=== PATIENT | male | born 1965 | race Caucasian/White ===

== ENCOUNTER 2022-04-18 02:57 | Observation (INO) | payer BC ==
[2022-04-18 05:28] VITALS: BMI 27.9
[2022-04-18] MEDS ORDERED: Nitroglycerin 0.4 MG TAB (25 Tab Bottle) SL PRN (05:33)
[2022-04-18] MEDS ORDERED: Ondansetron PF 4 MG/2 ML Vial IVP PRN (05:33)
[2022-04-18] MEDS ORDERED: Acetaminophen 325 MG TAB PO PRN (05:33)
[2022-04-18] MEDS ORDERED: Sodium Chloride 0.9% 1,000 ML IV SCH (06:00)
[2022-04-18 06:22] LABS: #Eosinphils 0.2 thou/uL (0.0-0.7); #Lymphocytes 3.4 thou/uL (1.20-3.40); #Monocytes 0.7 thou/uL (0.11-0.59); #Neutrophils 5.6 thou/uL (1.40-6.50); %Basophils 0.4 % (0.0-1.0); %Eosinophils 1.9 % (0.0-10.0); %Lymphocytes 34.5 % (21.0-51.0); %Monocytes 6.9 % (0.0-10.0); %Neutrophils 56.3 % (42.0-75.0); Hemoglobin 14.8 g/dL (14.0-18.0); Mean Corpuscular Hemoglobin 31.7 pg (27.0-31.0); Mean Corpuscular Volume 93.2 fl (78.0-98.0); Mean Platelet Volume 7.2 fL (7.4-10.4); Platelet Count 202 10x3/uL (130-400); RBC Distribution Width 12.9 % (11.5-14.5); Red Blood Cell (RBC) Count 4.67 mill/uL (4.70-6.10); White Blood Cell (WBC) Count 9.9 10x3/uL (4.8-10.8)
[2022-04-18 06:29] LABS: Hemoglobin A1c 4.9 % (4.0-6.0)
[2022-04-18 06:42] LABS: Anion Gap 12 mmol/L (10-20); BUN (Urea Nitrogen) 27 mg/dL (8.4-25.7); Calc. Creatinine Clearance 100 mL/min (70-130); Calcium 8.4 mg/dL (7.8-10.44); Carbon Dioxide 21 mmol/L (22-29); Cardiac Risk 5.8 (Less than 4.5); Chloride 108 mmol/L (98-107); Cholesterol 209 mg/dl (< 200 Desired); Estimated GFR 78; Glucose 96 mg/dL (70-105); HDL Cholesterol 36 mg/dL (>60 Neg Risk); LDL Cholesterol, Calculated 151 mg/dL; Sodium 137 mmol/L (136-145); Triglycerides 111 mg/dL (Less than 150)
[2022-04-18 08:04] VITALS: TEMP 97.8
[2022-04-18 08:49] LABS: Troponin I Less than 0.010 ng/mL (< 0.028)
[2022-04-18] MEDS ORDERED: Aspirin 81 mg Enteric Coated Tablet PO SCH (09:00)
[2022-04-18 12:27] VITALS: BP 118/67
[2022-04-18] MEDS ORDERED: Regadenoson 0.4 MG/5 ML SYRINGE ONE (13:31)
[2022-04-18] MEDS ORDERED: Atorvastatin Calcium 20 MG TAB PO SCH (21:00)
== END 2022-04-18 14:13 | disposition home or self-care (01) ==
LOC: 2SW 05:21
PROVIDERS: ADMIT Internal Medicine; ATTEND Internal Medicine
DX: R07.89 Other chest pain (principal); N17.9 Acute kidney failure, unspecified; E78.5 Hyperlipidemia, unspecified; I73.9 Peripheral vascular disease, unspecified; F17.210 Nicotine dependence, cigarettes, uncomplicated; Z20.822 Contact with and (suspected) exposure to COVID-19
CPT/HCPCS: 36415; 78452; 80061; 83036; 93017; A9500; G0378; J2785; J7050; U0003; U0005

== ENCOUNTER 2022-12-28 22:26 | Inpatient (IN) | payer BC ==
[~2022-12-28 22:26] MED LIST: Iopamidol 370 76% 100 ML VIAL ONE
[2022-12-28] MEDS ORDERED: fentaNYL 50 mcg/mL 1 mL Vial ONE (22:43)
[2022-12-28] MEDS ORDERED: Heparin 10,000 UNITS/ 10 ML VIAL ONE ×2 (22:44→23:25)
[2022-12-28] MEDS ORDERED: Verapamil 5 MG/2 ML VIAL ONE (22:44)
[2022-12-28] MEDS ORDERED: Lidocaine 1% (PF) 30 ML VIAL ONE (22:44)
[2022-12-28] MEDS ORDERED: Adenosine 6 MG/2 ML VIAL ONE (22:44)
[2022-12-28] MEDS ORDERED: Midazolam HCl 2 mg/2 ml Vial ONE (22:44)
[2022-12-28] MEDS ORDERED: Nitroglycerin 50 MG/250 ML BOT 250 ML ONE (22:45)
[2022-12-28] MEDS ORDERED: Atropine Sulfate 1 mg/10 ml Syringe ONE (22:46)
[2022-12-28] MEDS ORDERED: PHENYLEPHRINE-NS 100 MCG/ML 10 ML SYRINGE ONE (23:41)
[2022-12-29] MEDS ORDERED: TICAGRELOR 90 MG TABLET ONE (00:42)
[2022-12-29] MEDS ORDERED: traMADol HCl 50 MG TAB PO PRN (00:43)
[2022-12-29] MEDS ORDERED: Milk Of Magnesia 30 ML UDCUP PO PRN (00:43)
[2022-12-29] MEDS: Sodium Chloride 0.9% 1,000 ML IV SCH ×2 (01:18→01:19)
[2022-12-29 01:24] VITALS: BMI 26.6
[2022-12-29] MEDS ORDERED: Nitroglycerin 50 MG/250 ML BOT 250 ML IVPB SCH (01:30)
[2022-12-29] MEDS: Acetaminophen/Codeine 30-300mg Tablet PO PRN ×2 (02:01→13:46)
[2022-12-29] MEDS: TICAGRELOR 90 MG TABLET PO SCH ×2 (10:30→21:06)
[2022-12-29] MEDS: Aspirin Chewable 81 MG TAB PO SCH (10:31)
[2022-12-29] MEDS: Nicotine 21 MG PATCH TD SCH (10:31)
[2022-12-29] MEDS ORDERED: Ondansetron PF 4 MG/2 ML Vial IVP SCH (17:30)
[2022-12-29] MEDS ORDERED: Atorvastatin Calcium 20 MG TAB PO SCH (21:00)
[2022-12-30 06:37] LABS: #Eosinphils 0.3 thou/uL (0.0-0.7); #Monocytes 0.9 thou/uL (0.11-0.59); #Neutrophils 6.7 thou/uL (1.40-6.50); %Basophils 0.3 % (0.0-1.0); %Eosinophils 2.4 % (0.0-10.0); %Lymphocytes 24.1 % (21.0-51.0); %Monocytes 8.4 % (0.0-10.0); %Neutrophils 64.5 % (42.0-75.0); Hematocrit 43.7 % (42.0-52.0); Hemoglobin 15.1 g/dL (14.0-18.0); Mean Corpuscular HGB CONC 34.6 g/dL (32.0-36.0); Mean Corpuscular Hemoglobin 31.5 pg (27.0-31.0); Mean Platelet Volume 10.3 fL (7.4-10.4); Platelet Count 183 10x3/uL (130-400); RBC Distribution Width 13.9 % (11.5-14.5); White Blood Cell (WBC) Count 10.3 10x3/uL (4.8-10.8)
[2022-12-30 07:02] LABS: ALT (SGPT) 20 U/L (8-55); AST (SGOT) 44 U/L (5-34); Albumin 3.8 g/dL (3.5-5.0); Alkaline Phosphatase 62 U/L (40-110); Anion Gap 11 mmol/L (10-20); BUN (Urea Nitrogen) 11 mg/dL (8.4-25.7); Bilirubin, Total 0.7 mg/dL (0.2-1.2); Calc. Creatinine Clearance 89 mL/min (70-130); Calcium 8.8 mg/dL (7.8-10.44); Carbon Dioxide 24 mmol/L (22-29); Chloride 108 mmol/L (98-107); Estimated GFR 74; Globulin 2.2 g/dL (2.4-3.5); Glucose 101 mg/dL (70-105); Potassium 3.9 mmol/L (3.5-5.1); Sodium 139 mmol/L (136-145)
[2022-12-30] MEDS ORDERED: TICAGRELOR 90 MG TABLET PO SCH (09:00)
[2022-12-30] MEDS: TICAGRELOR 90 MG TABLET PO SCH (09:28)
[2022-12-30] MEDS: Aspirin Chewable 81 MG TAB PO SCH (09:28)
[2022-12-30] MEDS: Nicotine 21 MG PATCH TD SCH (09:28)
[2022-12-30 11:57] VITALS: TEMP 98.1
[2022-12-30 14:15] VITALS: BP 115/66
== END 2022-12-30 14:40 | disposition home or self-care (01) | DRG 322 ==
LOC: ERS 22:26 → SDC/OP 22:54 → CCU 12-29 00:43
PROVIDERS: ADMIT Internal Medicine Cardiovascular Disease; ATTEND Internal Medicine Cardiovascular Disease
PROC: 027035Z Dilation of Coronary Artery, One Artery with Two Drug-eluting Intraluminal Devices, Percutaneous Approach (ICD-10-PCS; principal; 2022-12-28)
PROC: 4A023N7 Measurement of Cardiac Sampling and Pressure, Left Heart, Percutaneous Approach (ICD-10-PCS; 2022-12-28)
PROC: B2111ZZ Fluoroscopy of Multiple Coronary Arteries using Low Osmolar Contrast (ICD-10-PCS; 2022-12-28)
PROC: B240ZZ3 Ultrasonography of Single Coronary Artery, Intravascular (ICD-10-PCS; 2022-12-28)
DX: I21.19 ST elevation (STEMI) myocardial infarction involving other coronary artery of inferior wall (principal); N17.9 Acute kidney failure, unspecified; I10 Essential (primary) hypertension; I25.10 Atherosclerotic heart disease of native coronary artery without angina pectoris; E78.5 Hyperlipidemia, unspecified; I73.9 Peripheral vascular disease, unspecified; F17.210 Nicotine dependence, cigarettes, uncomplicated; R11.0 Nausea; Z98.890 Other specified postprocedural states
CPT/HCPCS: 36415; 80053; 85025; 85347; 92941; 92978; 93005; 93010; 93306; 93454; 93798; 99152; 99153; C1725; C1753; C1769; C1874; C1887; C1894; C9606; J0153; J0461; J1644; J2001; J2250; J2405; J3010; J7050; Q9967